=== PATIENT | male | born 1960 | race Caucasian/White ===

== ENCOUNTER 2021-05-22 13:33 | Inpatient (IN) ==
[2021-05-22 15:04] LABS: Basophils % 0.2 %; Eosinophils % 0.2 %; Hematocrit 45.5 % (37.5-50.1); Hemoglobin 16.3 g/dL (12.9-16.9); Immature Granulocytes % 0.3 % (0-4); Lymphocytes # 1.4 K/mcL (0.6-4.6); Lymphocytes % 10.5 %; Mean Corpuscular HGB Conc 35.8 g/dL (31.6-35.5); Mean Corpuscular Hemoglobin 34.3 pg (28.0-33.3); Mean Corpuscular Volume 95.8 fL (83.0-100.0); Mean Platelet Volume 10.7 fL (9.4-12.4); Monocytes # 0.8 K/mcL (0.0-1.3); Monocytes % 6.3 %; Neutrophils # 10.7 K/mcL (1.6-8.9); Platelet Count 190 K/mcL (140-400); Red Blood Count 4.75 M/mcL (4.19-5.50); Red Cell Distribution Width 12.4 % (11.5-14.5); Segmented Neutrophils % 82.5 %
[2021-05-22 15:15] LABS: INR 1.1; Prothrombin Time 12.5 Seconds (9.4-12.1)
[2021-05-22 15:18] LABS: Activated Partial Thrombo Time 30.9 Seconds (26.0-36.0)
[2021-05-22 15:32] LABS: BUN/Creatinine Ratio 17 (6-26); Blood Urea Nitrogen 15 mg/dL (8-23); Calcium 9.9 mg/dL (8.6-10.3); Carbon Dioxide 26 mEq/L (23-29); Chloride 104 mEq/L (98-107); Glucose 121 mg/dL (70-105); Osmolality,Calculated 288 (280-300); Sodium 138 mEq/L (136-145); eGFR For African Americans > 60 (> 60); eGFR For Non-African Americans > 60 (> 60)
[2021-05-22 15:48] LABS: Troponin I 0.16 ng/mL (< 0.04)
[2021-05-22] MEDS ORDERED: *HR* Heparin 5,000 UNIT/ML VIAL IVP ONE (16:06)
[2021-05-22] MEDS ORDERED: *HR* Heparin 5,000 UNIT/ML VIAL IVP PRN ×2 (16:06)
[2021-05-22] MEDS ORDERED: Nitroglycerin 1 INCH/GM PACKET TP ONE (16:12)
[2021-05-22] MEDS ORDERED: Acetaminophen 325 MG TABLET PO PRN (16:15)
[2021-05-22] MEDS ORDERED: Naloxone 0.4 MG/ML INJ IVP PRN (16:15)
[2021-05-22] MEDS ORDERED: Ondansetron 4 MG/2 ML VIAL IVP PRN (16:15)
[2021-05-22] MEDS ORDERED: Nicotine 2 MG GUM BC PRN (16:22)
[2021-05-22 16:39] LABS: Hematocrit 45.9 % (37.5-50.1); Mean Corpuscular HGB Conc 34.9 g/dL (31.6-35.5); Mean Corpuscular Hemoglobin 33.3 pg (28.0-33.3); Mean Corpuscular Volume 95.4 fL (83.0-100.0); Mean Platelet Volume 10.4 fL (9.4-12.4); Platelet Count 194 K/mcL (140-400); Red Blood Count 4.81 M/mcL (4.19-5.50); Red Cell Distribution Width 12.5 % (11.5-14.5); White Blood Count 13.6 K/mcL (4.3-11.1)
[2021-05-22 16:47] LABS: Heparin anti-factor XA UFH < 0.04 IU/mL (0.30-0.70); INR 1.1; Prothrombin Time 12.2 Seconds (9.4-12.1)
[2021-05-22 16:49] LABS: Activated Partial Thrombo Time 31.7 Seconds (26.0-36.0)
[2021-05-22] MEDS: Heparin 25,000UNIT/250ML 1/2NS 25,000 UNIT/250 ML IV.SOLN IVC SCH (16:53)
[2021-05-22] MEDS: Nicotine 21 MG PATCH.TD24 TD SCH (17:07)
[2021-05-22] MEDS ORDERED: Perflutren Lipid Microsphere 1.3 ML in 0.9 % Sodium Chloride 8.7 ML IVP PRN (17:23)
[2021-05-22] MEDS ORDERED: Aspirin 325 MG TABLET PO SCH (17:30)
[2021-05-22] MEDS: Melatonin 3 MG TABLET PO PRN (23:31)
[2021-05-23 07:40] LABS: Hematocrit 45.8 % (37.5-50.1); Mean Corpuscular HGB Conc 34.9 g/dL (31.6-35.5); Mean Corpuscular Hemoglobin 33.6 pg (28.0-33.3); Mean Corpuscular Volume 96.2 fL (83.0-100.0); Mean Platelet Volume 10.7 fL (9.4-12.4); Platelet Count 171 K/mcL (140-400); Red Blood Count 4.76 M/mcL (4.19-5.50); Red Cell Distribution Width 12.5 % (11.5-14.5); White Blood Count 11.2 K/mcL (4.3-11.1)
[2021-05-23 08:08] LABS: BUN/Creatinine Ratio 16 (6-26); Blood Urea Nitrogen 13 mg/dL (8-23); Calcium 9.2 mg/dL (8.6-10.3); Carbon Dioxide 23 mEq/L (23-29); Chloride 107 mEq/L (98-107); Glucose 100 mg/dL (70-105); Osmolality,Calculated 288 (280-300); Phosphorous 2.4 mg/dL (2.7-4.5); Potassium 3.9 mEq/L (3.5-5.1); Sodium 139 mEq/L (136-145); Troponin I 5.14 ng/mL (< 0.04); eGFR For African Americans > 60 (> 60); eGFR For Non-African Americans > 60 (> 60)
[2021-05-23] MEDS: Nicotine 21 MG PATCH.TD24 TD SCH (08:13)
[2021-05-23] MEDS: Aspirin 81 MG TAB.CHEW PO SCH (08:13)
[2021-05-23] MEDS: lisinopriL 5 MG TABLET PO SCH (11:53)
[2021-05-23] MEDS: Heparin 25,000UNIT/250ML 1/2NS 25,000 UNIT/250 ML IV.SOLN IVC SCH (19:28)
[2021-05-23] MEDS: Melatonin 3 MG TABLET PO PRN (23:22)
[2021-05-24 08:15] LABS: BUN/Creatinine Ratio 14 (6-26); Blood Urea Nitrogen 11 mg/dL (8-23); Calcium 9.6 mg/dL (8.6-10.3); Carbon Dioxide 23 mEq/L (23-29); Chloride 106 mEq/L (98-107); Glucose 100 mg/dL (70-105); Osmolality,Calculated 281 (280-300); Potassium 3.8 mEq/L (3.5-5.1); Sodium 136 mEq/L (136-145); eGFR For African Americans > 60 (> 60); eGFR For Non-African Americans > 60 (> 60)
[2021-05-24] MEDS: Aspirin 81 MG TAB.CHEW PO SCH (08:45)
[2021-05-24] MEDS: lisinopriL 5 MG TABLET PO SCH (08:45)
[2021-05-24 09:05] LABS: Hematocrit 46.3 % (37.5-50.1); Hemoglobin 15.9 g/dL (12.9-16.9); Mean Corpuscular HGB Conc 34.3 g/dL (31.6-35.5); Mean Corpuscular Hemoglobin 32.5 pg (28.0-33.3); Mean Corpuscular Volume 94.7 fL (83.0-100.0); Mean Platelet Volume 11.5 fL (9.4-12.4); Platelet Count 181 K/mcL (140-400); Red Blood Count 4.89 M/mcL (4.19-5.50); Red Cell Distribution Width 12.4 % (11.5-14.5); White Blood Count 10.6 K/mcL (4.3-11.1)
[2021-05-24] MEDS ORDERED: ISOVUE-370 200 ML INFUS..BTL ONE ×2 (10:22→11:32)
[2021-05-24] MEDS ORDERED: Nitroglycerin 1,000 MCG/5 ML VIAL IV ONE ×2 (10:22→11:42)
[2021-05-24] MEDS ORDERED: Heparin 1,000 UNITS/500 mL 500 ML ONE ×2 (10:22→11:24)
[2021-05-24] MEDS ORDERED: 0.9 % Sodium Chloride 2,000 ML ONE (10:22)
[2021-05-24] MEDS ORDERED: *HR* Heparin 10,000 UNIT/10 ML VIAL ONE (10:22)
[2021-05-24] MEDS ORDERED: *HR* FentaNYL (PF) 100 MCG/2 ML VIAL ONE (10:49)
[2021-05-24] MEDS ORDERED: *HR* Midazolam HCl 2 MG/2 ML VIAL ONE (10:50)
[2021-05-24] MEDS ORDERED: Tirofiban 12.5 MG/250ML 12.5 MG/250 ML BAG ONE (11:21)
[2021-05-24] MEDS ORDERED: *HR* Ticagrelor 90 MG TABLET ONE (12:03)
[2021-05-24] MEDS ORDERED: Tirofiban 12.5 MG/250ML 12.5 MG/250 ML BAG IVC SCH (12:15)
[2021-05-24] MEDS: Nicotine 21 MG PATCH.TD24 TD SCH (12:37)
[2021-05-24] MEDS ORDERED: lisinopriL 5 MG TABLET PO ONE (15:19)
[2021-05-24] MEDS: *HR* Heparin 5,000 UNIT/ML VIAL SQ SCH (18:02)
[2021-05-24] MEDS: *HR* Ticagrelor 90 MG TABLET PO SCH (20:52)
[2021-05-25 01:52] LABS: Hematocrit 44.7 % (37.5-50.1); Mean Corpuscular HGB Conc 35.8 g/dL (31.6-35.5); Mean Corpuscular Volume 94.9 fL (83.0-100.0); Mean Platelet Volume 10.8 fL (9.4-12.4); Platelet Count 189 K/mcL (140-400); Red Blood Count 4.71 M/mcL (4.19-5.50); White Blood Count 11.1 K/mcL (4.3-11.1)
[2021-05-25 01:57] LABS: BUN/Creatinine Ratio 14 (6-26); Blood Urea Nitrogen 11 mg/dL (8-23); Calcium 9.4 mg/dL (8.6-10.3); Carbon Dioxide 20 mEq/L (23-29); Chloride 107 mEq/L (98-107); Glucose 135 mg/dL (70-105); Osmolality,Calculated 285 (280-300); Potassium 3.8 mEq/L (3.5-5.1); Sodium 137 mEq/L (136-145); eGFR For African Americans > 60 (> 60); eGFR For Non-African Americans > 60 (> 60)
[2021-05-25] MEDS: Melatonin 3 MG TABLET PO PRN (02:15)
[2021-05-25] MEDS: *HR* Heparin 5,000 UNIT/ML VIAL SQ SCH (05:34)
[2021-05-25 06:56] VITALS: BP 142/96; PULSE 62; TEMP 98.2; O2SAT 92
[2021-05-25] MEDS: *HR* Ticagrelor 90 MG TABLET PO SCH (08:59)
[2021-05-25] MEDS: Aspirin 81 MG TAB.CHEW PO SCH (08:59)
[2021-05-25] MEDS: Nicotine 21 MG PATCH.TD24 TD SCH (09:00)
[2021-05-25] MEDS ORDERED: lisinopriL 10 MG TABLET PO SCH (09:00)
[2021-05-25 09:14] LABS: Estimated Average Glucose 105 mg/dl; Hemoglobin A1C 5.3 %
== END 2021-05-25 13:20 | disposition home or self-care (01) | DRG 174 ==
LOC: EMEROOARM 13:33 → 2ANU 13:33 → SUATTDRO 19:45 → 2ANU 20:31
PROVIDERS: ADMIT Internal Medicine; ATTEND Internal Medicine